=== PATIENT | female | born 1970 | race Caucasian/White ===

== ENCOUNTER → 2017-09-13 10:12 | Outpatient (CLI) | payer BC, SELFPAY ==
--- NOTE | 2017-09-13 10:16 | MM_ITS ---
MM Dig screening mamm BI w/CAD CAD Screening COMPARISON: Analog mammograms 04/16/2007 INDICATION: There is no personal or family history of breast cancer TECHNIQUE: Standard CC and MLO images were obtained. R2 CAD reviewed. FINDINGS: Scattered fiber glandular densities are seen throughout both breasts. There is an asymmetric density lower inner quadrant right breast which is stable and unchanged in size and overall appearance from the previous exam. It has smooth well-defined borders and likely is a fibroadenoma. There is no new or suspicious lesion in either breast and there are no suspicious microcalcifications. IMPRESSION: However fatty parenchyma no suspicious lesion seen recommend yearly follow-up BI-RADS Category: 2 Benign Finding(s) RECOMMENDED FOLLOW-UP: 1YR - 1 YEAR FOLLOW-UP (A letter has been sent to the patient regarding results of the study.)
== END ==
PROVIDERS: Family Provider Family Medicine; PCP Family Medicine; Visit Provider Family Medicine
DX: Z12.31 Encounter for screening mammogram for malignant neoplasm of breast (principal)
CPT/HCPCS: 77067

== ENCOUNTER 2020-06-27 17:08 | Emergency (ER) | payer BC, SELFPAY ==
[2020-06-27 17:47] VITALS: BP 144/75; PULSE 85; RESP 19; TEMP 36.9; O2SAT 99; BMI 25.0
--- NOTE | 2020-06-27 17:56 | HMH.EDUTC ---
[facility] Disposition Clinical Impression: Exposure to COVID-19 virus Disposition: Home, Self-Care Condition on Discharge: Good Instructions: Preventing the Spread of Coronavirus Discharge Instructions Additional Instructions: isolate for 10 days if any symptoms follow up call pcp if symptoms worsen return or be seen in ed Referrals: Renata Torres APRN [Primary Care Provider] - Time of Disposition: 17:59 Medical Decision Making - Castro Inquiry Pt receiving controlled substance: No Vital Signs: 06/27/20 17:47 Temperature 98.4 F Temperature Source Oral Pulse Rate [Right Brachial] 85 Respiratory Rate 19 Blood Pressure [Right Arm] 144/75 H Blood Pressure Mean [Right Arm] 98 Blood Pressure Source [Right Arm] Automatic Cuff Blood Pressure Position [Right Arm] Sitting 02 Sat by Pulse Oximetry 99 Oxygen Delivery Method Room Air Orders (Tests/Meds): ORDERS Category Date Time Status Covid-19 Nasal PCR ([facility]) Routine Lab 06/27/20 17:26 Received [facility] HPI - General Chief complaint: Urgent Treatment Center Stated complaint: covid exposure Time Seen by Provider: 06/27/20 17:56 Mode of Arrival: Ambulatory Source of Information: Patient Limitations: No Limitations Description of Symptoms (Recalled from Triage Doc. by RN): PATIENT REQUESTING COVID TEST D/T EXPOSURE; DENIES SYMPTOMS HEENT Symptoms (Recalled from RN notes): No Resp Symptoms (Recalled from RN notes): No Skin Symptoms (Recalled from RN notes): No MS Symptoms (Recalled from RN notes): No Functional Status (Recalled from RN notes): WNL - History of Present Illness Provider Complaint: 49 yr old female presents for covid test. pt states her was exposed and had symptoms and her work wants her tested. - Related Data Allergies Allergy/AdvReac Type Severity Reaction Status Date / Time No Known Allergies Allergy Verified 06/27/20 17:50 - Worker's Comp Is this a Worker's Comp case?: No [facility] History - Hepatitis A Screen Drug use history?: No High risk sexual behaviors?: No History of sexually transmitted infection?: No Currently employed?: No Childcare worker?: No Do you have indoor plumbing?: Yes Do you have electricity?: Yes Attestation statement:: This patient has been screened for Hepatitis A risk factors. I have reviewed the patient's past medical history: Yes - Social History Alcohol Intake: never Occupational Status: other ROS Obtained: Yes Systems reviewed as appropriate & no additional complaints - Constitutional Constitutional: Reports system reviewed and no additional complaints, except as docu, Denies fever(s) - Eyes Eyes: Reports system reviewed and no additional complaints, except as docu, Denies loss of peripheral vision - ENT Ears, Nose, Mouth, and Throat: Reports system reviewed and no additional complaints, except as docu, Denies sore throat - Cardiovascular Cardiovascular: Reports system reviewed and no additional complaints, except as docu, Denies chest pain at rest - Respiratory Respiratory: Yes system reviewed and no additional complaints, except as docu, No dyspnea - Gastrointestinal Gastrointestingal: Reports: system reviewed and no additional complaints, except as docu. Denies: nausea, vomiting - Genitourinary Female Genitourinary: Reports system reviewed and no additional complaints, except as docu, Denies nocturia - Musculoskeletal Musculoskeletal: Reports system reviewed and no additional complaints, except as docu, Denies decreased muscle mass - Integumentary/Breasts Skin/Breast: Reports system reviewed and no additional complaints, except as docu, Denies rash - Neurologic Neurologic: Reports system reviewed and no additional complaints, except as docu - Endocrine Endocrine: Reports system reviewed and no additional complaints, except as docu, Denies fatigue - Hematologic/Lymphatic Henatologic/Lymphatic: Reports system reviewed and no additional complaints, except as do
[2020-06-27 17:58] VITALS: BP 144/75; PULSE 85; RESP 19; TEMP 36.9; O2SAT 99
== END 2020-06-27 18:00 | disposition home or self-care (01) ==
PROVIDERS: Emergency Provider Nurse Practitioner Family; PCP Nurse Practitioner Family
DX: Z20.828 Contact with and (suspected) exposure to other viral communicable diseases (principal)
CPT/HCPCS: 99201; U0003

== ENCOUNTER 2020-08-02 13:39 | Emergency (ER) | payer BC, SELFPAY ==
[2020-08-02 14:25] VITALS: BP 123/69; PULSE 97; RESP 20; TEMP 36.8; O2SAT 99; BMI 26.6
--- NOTE | 2020-08-02 14:50 | HMH.EDUTC ---
[facility] Disposition Clinical Impression: Exposure to COVID-19 virus Disposition: Home, Self-Care Condition on Discharge: Good Instructions: Preventing the Spread of Coronavirus Discharge Instructions Additional Instructions: Drink plenty of fluids. Take tylenol for pain or fever. Return if you begin to have difficulty breathing. Follow up with your regular doctor. GO TO THE ER FOR ANY WORSENING SYMPTOMS Referrals: Amarjit Pope MD [Primary Care Provider] - Time of Disposition: 14:59 Medical Decision Making - Medical Records Medical records reviewed: No: I reviewed the patient's medical records. - Castro Inquiry Pt receiving controlled substance: No Vital Signs: 08/02/20 14:25 Temperature 98.3 F Temperature Source Oral Pulse Rate [Right Brachial] 97 H Respiratory Rate 20 Blood Pressure [Right Arm] 123/69 Blood Pressure Mean [Right Arm] 87 Blood Pressure Source [Right Arm] Automatic Cuff Blood Pressure Position [Right Arm] Sitting 02 Sat by Pulse Oximetry 99 Oxygen Delivery Method Room Air Orders (Tests/Meds): ORDERS Category Date Time Status Covid-19 Nasal PCR Sendout Adiel Routine Lab 08/02/20 13:53 Received [facility] [place] HPI - General Stated complaint: wants covid test Time Seen by Provider: 08/02/20 14:56 Mode of Arrival: Ambulatory Source of Information: Patient Limitations: No Limitations Description of Symptoms (Recalled from Triage Doc. by RN): PATIENT REQUESTING COVID TEST D/T EXPOSURE; DENIES SYMPTOMS HEENT Symptoms (Recalled from RN notes): No Resp Symptoms (Recalled from RN notes): No Skin Symptoms (Recalled from RN notes): No MS Symptoms (Recalled from RN notes): No Functional Status (Recalled from RN notes): WNL - History of Present Illness Provider Complaint: Her tested positive for covid yesteday. This patient denies any symptoms. - Related Data Allergies Allergy/AdvReac Type Severity Reaction Status Date / Time No Known Allergies Allergy Verified 06/27/20 17:50 - Worker's Comp Is this a Worker's Comp case?: No [facility] History - Hepatitis A Screen Drug use history?: No High risk sexual behaviors?: No History of sexually transmitted infection?: No Currently employed?: No Childcare worker?: No Do you have indoor plumbing?: Yes Do you have electricity?: Yes Attestation statement:: This patient has been screened for Hepatitis A risk factors. I have reviewed the patient's past medical history: Yes - Social History Alcohol Intake: never Occupational Status: other ROS Obtained: Yes All systems reviewed & no additional complaints - Constitutional Constitutional: Reports system reviewed and no additional complaints, except as docu - Eyes Eyes: Reports system reviewed and no additional complaints, except as docu - ENT Ears, Nose, Mouth, and Throat: Reports system reviewed and no additional complaints, except as docu - Cardiovascular Cardiovascular: Reports system reviewed and no additional complaints, except as docu - Respiratory Respiratory: Yes system reviewed and no additional complaints, except as docu - Gastrointestinal Gastrointestingal: Reports: system reviewed and no additional complaints, except as docu Physical Exam - General General appearance: alert, in no apparent distress - Head Head exam: atraumatic, normocephalic, normal inspection - Eye Eye exam: Present: normal appearance, PERRL, EOMI - ENT ENT exam: Present: normal exam, normal oropharynx, mucous membranes moist, TM's normal bilaterally, normal external ear exam - Neck Neck exam: Present: normal inspection, full ROM, trachea midline. Absent: meningismus, lymphadenopathy - Chest Chest inspection: Present: normal inspection, symmetric chest wall rise. Absent: tenderness - Respiratory Respiratory exam: Present: normal lung sounds bilaterally. Absent: respiratory distress - Cardiovascular Cardiovascular exam: Present: regular rate, normal rhythm
[2020-08-02 15:05] VITALS: BP 123/69; PULSE 97; RESP 20; TEMP 36.8; O2SAT 99
[2020-08-04 15:25] LABS: Covid-19 Nasal PCR Sendout Lex Positive
--- NOTE | 2020-08-04 16:20 | PC.NURSE ---
CALLED PT TO ADVISE PT THAT THEY HAVE A POSITIVE COVID TEST, PT STATED THAT SHE HAD CALLED EARLIER THIS MORNING AND WAS TOLD THAT HER TEST WAS NEGATIVE. CHECKED PTS CHART AGAIN TO VERIFY THAT SHE HAD A POSITIVE COVID TEST. CALLED LANE MARKER INSTALLER EMILIE RECIO TO LET HER KNOW THAT THE PT NEEDED TO SPEAK TO HER
== END 2020-08-02 15:10 | disposition home or self-care (01) ==
PROVIDERS: Emergency Provider Nurse Practitioner Family; PCP Family Medicine
DX: U07.1 COVID-19 (principal)
CPT/HCPCS: 99201; U0004

== ENCOUNTER → 2020-10-30 10:01 | Outpatient (CLI) | payer BC, SELFPAY ==
[2020-10-30 10:58] LABS: Basophils # 0.1 K/mm3 (0-0.2); Basophils % 0.7 % (0.1-2.0); Eosinophils # 0.2 K/mm3 (0.0-0.4); Eosinophils % 2.4 % (0.1-12.0); Hematocrit 40.8 % (37.0-47.0); Hemoglobin 13.1 g/dL (12.2-16.2); Lymphocytes # 1.5 K/mm3 (0.7-4.5); Lymphocytes % 18.6 % (10-50); Mean Corpuscular HGB Conc 32.2 g/dL (31.8-35.4); Mean Corpuscular Hemoglobin 29.1 pg (27.0-31.2); Mean Corpuscular Volume 90.5 fl (81-99); Mean Platelet Volume 7.8 fl (7.4-10.4); Monocytes # 0.3 K/mm3 (0.1-1.0); Monocytes % 3.6 % (1.7-9.3); Neutrophils # 5.9 K/mm3 (1.8-7.8); Neutrophils % 74.8 % (37.0-80.0); Platelet Count 449 K/mm3 (142-424); Red Blood Count 4.51 M/mm3 (4.20-5.40); Red Cell Distribution Width 13.5 % (11.5-17.5); White Blood Count 7.8 K/mm3 (4.8-10.8)
[2020-10-30 12:11] LABS: Alanine Aminotransferase 9 U/L (12-78); Albumin Level 3.9 g/dl (3.5-5.0); Albumin/Globulin Ratio 1.6 (1.1-1.8); Alkaline Phosphatase 84 U/L (38-126); Anion Gap 11.4 mEq/L (5-15); Aspartate Amino Transferase 16 U/L (14-36); Bilirubin,Total 0.4 mg/dl (0.2-1.3); Blood Urea Nitrogen 6 mg/dl (7-17); Calcium 9.4 mg/dl (8.4-10.2); Carbon Dioxide 22 mmol/L (22.0-30.0); Chloride 111 mmol/L (98-107); Chol/HDL Ratio 2.8 (1-3.5); Cholesterol 177 mg/dl (140-200); Estimated Glomerular Filt Rate 106 ml/min (>60); GFR (African American) 128 ML/MIN (>60); Globulin 2.5 g/dL (1.3-3.2); Glucose 100 mg/dl (74-100); HDL Cholesterol 63 mg/dl (40-60); Potassium 4.4 mmoL/L (3.5-5.1); Sodium 140 mmol/L (136-145); Total Protein,Serum 6.4 g/dl (6.3-8.2); Triglycerides 75 mg/dl (30-150); VLDL Cholesterol 15 mg/dL (0-40)
[2020-10-30 12:22] LABS: Direct LDL Cholesterol 95.84 mg/dL (100-129)
[2020-10-30 12:28] LABS: 25-OH Vitamin D, Total 20.4 ng/mL (30-100); T4 (Thyroxine) 12.6 ug/dl (5.53-11.0)
[2020-10-30 12:42] LABS: Thyroid Stimulating Hormone 1.18 uIU/mL (0.465-4.68)
== END ==
PROVIDERS: Visit Provider Nurse Practitioner Family
DX: R63.4 Abnormal weight loss (principal); R53.83 Other fatigue; E55.9 Vitamin D deficiency, unspecified
CPT/HCPCS: 36415; 80053; 80061; 82306; 84436; 84443; 85025

== ENCOUNTER 2020-11-01 06:21 | Day surgery (SDC) | payer BC, SELFPAY ==
[2020-10-29 13:58] VITALS: BMI 24.1
[2020-11-01] VITALS (9 sets, daily range): BP systolic 97–119; BP diastolic 58–75; PULSE 64–110; RESP 16–18; TEMP 36.8; O2SAT 95–97
--- NOTE | 2020-11-01 07:29 | P.PN_ITS ---
[facility] Anesthesia Checklist - Patient Identification Patient Identification: Arm Band - Structural Data Admitted From: Home Planned Operative Procedure/s: colonoscopy Consent for Planned Operative Procedure(s) Verified: Yes Verified Documents: Surgical Consent, History and Physical - NPO Status Verified Time NPO: 00:00 - Additional verifications Anesthesia Reactions: No - Airway Assessment C-Spine Mobility Assessed: Yes (mp2) TMJ Mobility Assessed: Yes Dentition: Good Dentition - Neurological Assessment Level of Consciousness: Awake, Alert - Anesthesia Plan Anesthesia Risk discussed: Yes Anesthesia Plan: Verified ASA Class: II Anesthesia Type: MAC [facility] History I have reviewed the patient's past medical history: Yes Medical History: Denies:: Cancer, Diabetes Mellitus Type 1, Diabetes Mellitus Type 2, MRSA, Seizures *Have you ever received a pneumonia vaccine?: No *Have you received a flu vaccine this season?: No Anesthesia experience/problems:: nac Other Surgeries: Yes: Hysterectomy-Total Amputation: No Fractures: No - *Social History Last grade of school completed: Advanced degree Smoking Status: Current every day smoker Tobacco Type: cigarettes # Packs/Day (cigarettes): 1 Alcohol Intake: never Substance Use Type: denies use *Occupational Status:: employed Housing: house Household Members: family *Travel in the last 8 weeks: None Family Hx:: Cancer
--- NOTE | 2020-11-01 07:33 | HMH.PROC ---
[facility] Procedure Note Procedure Note:: Sigmoidoscopy procedure Report: Sigmoidoscopy with cold biopsies Endoscopist: Silver Guthrie II, MD Referring physician: Debra BERRIOS Date of Procedure: November 01, 2020 Equipment: Olympus 180 variable stiffness pediatric colonoscope Sedation: MAC sedation Indication: Mrs. Nino is a 50-year-old female who has had a change in her bowel habits and weight loss. She does have smaller caliber and looser bowel movements. She has had some intermittent rectal bleeding which she attributes to hemorrhoids. She has lost 20 pounds since June 2020. She reports lower abdominal pain and discomfort. Patient does report incomplete defecation with longer periods of time in the commode and some hemorrhoidal prolapse. She reports no bloating or gassiness. She reports no family history of colon cancer. This is her first colonoscopy which is performed for diagnostic purposes. Procedure: Prior to the procedure, a history and physical exam was performed, and patient's medications and allergies were reviewed. The risks, benefits and alternatives of the sedation and procedure were discussed with the patient. All questions were answered and informed consent was obtained. The patient was brought to the procedure room. Patient identification and proposed procedure were verified by the physician and the nurse. The patient was placed in a left lateral decubitus position and the scope was passed under direct vision. Throughout the procedure, the patient's blood pressure, pulse, and oxygen saturations were monitored continuously. The colonoscopy was accomplished without difficulty. The patient tolerated the procedure well. Findings: On digital rectal examination there were prolapsed hemorrhoids. There was normal rectal tone. The rectal vault was normal, but digitally a circumferential fixed mass could be palpated approximately 10 cm from the anal verge. The colonoscope was then inserted through the anal canal into the rectum and advanced to this circumferential mass that was certainly partially stenotic. This was 4 to 5 cm in length and completely circumferential. There was friability and fungating mucosa. The proximal end was stenotic and the scope could not be advanced beyond this mass because of some fiber residue debris and stenosis. I did not attempt to dilate or advance beyond this stenotic region. Multiple biopsies were obtained. The distal rectum and rectal vault were normal. Upon retroflexion there were grade 2 internal hemorrhoids. Impression: 1. 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 Grade 2 internal hemorrhoids Plan: I will follow up the biopsies. I would initiate staging today with CT scan of chest, abdomen and pelvis with intravenous and p.o. contrast. I will obtain CEA level. I will discussed the case with colorectal surgery. I will also discuss everything with the patient and family.
--- NOTE | 2020-11-01 08:24 | CT_ITS ---
PROCEDURE: CT ABDOMEN PELVIS W CON CLINICAL INDICATION: colon cancer Constipation rectal pressure New findings from scope this am Injection in rt arm COMPARISON: No exams were available for comparison TECHNIQUE: IV Contrast: 75ML Isovue 370 Oral Contrast 450ml Redicat Axial images obtained with sagittal and coronal reformats. All CT scans at the facility use one or more dose reduction, viz: automated exposure control, ma/kV adjustment per patient size (including targeted exams where dose is matched to indication, i.e. head), or iterative reconstruction technique. FINDINGS: LOWER THORAX: No acute finding ABDOMEN & PELVIS: The liver, spleen, adrenal glands, kidneys and pancreas have an unremarkable appearance. Unremarkable appearing appendix. No intestinal obstruction or free air. There is a focal area of thickening involving the colon at the distal sigmoid colon and rectosigmoid junction. This region measures approximately 7 cm in length. The colonic wall thickening is somewhat eccentric toward the left lateral aspect of the colon at this area with severe narrowing at the rectosigmoid junction consistent with an apple-core lesion. This is consistent with carcinoma. There is some minimal irregularity of the serosal surface raising the suspicion of serosal spread. There are also a few small lymph nodes in the pelvic region measuring up to 11 mm in the left pelvis lateral to the rectosigmoid junction. Other smaller nodes are present centrally within the pelvis anteriorly suspicious for local fernando spread. No ascites. No no bony destructive process identified. No blastic or lytic lesions. IMPRESSION: 1. Colonic mass at the rectosigmoid junction consistent with neoplasm as described above with findings suspicious for serosal and local fernando spread. 2. No evidence of hepatic or adrenal metastasis Dictated by: Collin Severino MD 11/02/2020 10:12 Collin Severino MD in [place] 11/02/2020 10:12
[2020-11-01 08:35] LABS: Basophils % 0.3 % (0.1-2.0); Eosinophils # 0.2 K/mm3 (0.0-0.4); Eosinophils % 1.4 % (0.1-12.0); Hematocrit 37.9 % (37.0-47.0); Hemoglobin 12.5 g/dL (12.2-16.2); Lymphocytes # 1.4 K/mm3 (0.7-4.5); Lymphocytes % 12.7 % (10-50); Mean Corpuscular Hemoglobin 29.3 pg (27.0-31.2); Mean Corpuscular Volume 88.9 fl (81-99); Mean Platelet Volume 8.2 fl (7.4-10.4); Monocytes # 0.4 K/mm3 (0.1-1.0); Monocytes % 3.7 % (1.7-9.3); Neutrophils # 9.1 K/mm3 (1.8-7.8); Neutrophils % 81.8 % (37.0-80.0); Platelet Count 423 K/mm3 (142-424); Red Blood Count 4.26 M/mm3 (4.20-5.40); Red Cell Distribution Width 13.2 % (11.5-17.5); White Blood Count 11.1 K/mm3 (4.8-10.8)
[2020-11-01 08:42] LABS: Blood Urea Nitrogen 7 mg/dl (7-17); Creatinine Clearance Estimated 100 mL/min (50-200); Estimated Glomerular Filt Rate 89 ml/min (>60); GFR (African American) 107 ML/MIN (>60)
[2020-11-01 08:43] LABS: Iron 74 ug/dL (37-170)
[2020-11-01 08:52] LABS: Total Iron Binding Capacity 325 ug/dL (265-497)
[2020-11-01 09:21] LABS: Ferritin 11.7 ng/ml (6.24-137)
[2020-11-02 17:40] LABS: CEA 61.5 ng/mL (0.0-4.7)
== END 2020-11-01 09:38 | disposition home or self-care (01) ==
PROVIDERS: PCP Nurse Practitioner Family; Visit Provider Internal Medicine Gastroenterology
PROC: 0DJD8ZZ Inspection of Lower Intestinal Tract, Via Natural or Artificial Opening Endoscopic (ICD-10-PCS; CPT 45330; 2020-11-01 07:30)
DX: R19.4 Change in bowel habit (principal); R63.4 Abnormal weight loss; Z68.24 Body mass index [BMI] 24.0-24.9, adult; C18.7 Malignant neoplasm of sigmoid colon; K64.1 Second degree hemorrhoids; K56.699 Other intestinal obstruction unspecified as to partial versus complete obstruction; Z72.0 Tobacco use
CPT/HCPCS: 45331; 36415; 74177; 82378; 82565; 82728; 83540; 83550; 84520; 85025; Q9967

== ENCOUNTER → 2020-11-03 13:14 | Outpatient (CLI) | payer BC, SELFPAY ==
--- NOTE | 2020-11-03 13:24 | CT_ITS ---
PROCEDURE: CT CHEST W CON CLINCAL INDICATION: RECTOSIGMOID Colon cancer workup, evaluate for metastatic disease New findings (rectosigmoid cancer) for surgery COMPARISON: No exams were available for comparison TECHNIQUE: IV Contrast: 75ml Isovue 370 Axial images obtained with sagittal and coronal reformats. All CT scans at the facility use one or more dose reduction, viz: automated exposure control, ma/kV adjustment per patient size (including targeted exams where dose is matched to indication, i.e. head), or iterative reconstruction technique. FINDINGS: HEART AND MEDIASTINAL STRUCTURES: No mediastinal or hilar mass or adenopathy LUNGS AND PLEURAL SPACES: Lungs are clear. No suspicious pulmonary nodules. BONY STRUCTURES: No acute bony abnormalities apparent. UPPER ABDOMEN: Unremarkable. ADDITIONAL FINDINGS: No other significant abnormalities. IMPRESSION: Negative CT chest. No convincing evidence of metastatic disease Dictated by: Collin Severino MD 11/04/2020 15:33 Collin Severino MD in [place] 11/04/2020 15:33
== END ==
PROVIDERS: PCP Nurse Practitioner Family; Visit Provider Surgery
DX: C18.9 Malignant neoplasm of colon, unspecified
CPT/HCPCS: 71260; Q9967

== ENCOUNTER → 2021-05-13 09:50 | Outpatient (CLI) | payer BC, SELFPAY | PROVIDERS: Visit Provider Surgery | DX: Z01.818 Encounter for other preprocedural examination (principal); Z11.52 Encounter for screening for COVID-19; Z12.11 Encounter for screening for malignant neoplasm of colon; C19 Malignant neoplasm of rectosigmoid junction | CPT/HCPCS: U0003 ==

== ENCOUNTER → 2021-06-17 10:28 | Outpatient (CLI) | payer BC, SELFPAY | PROVIDERS: Visit Provider Nurse Practitioner Family | DX: Z01.812 Encounter for preprocedural laboratory examination (principal); Z20.822 Contact with and (suspected) exposure to COVID-19 | CPT/HCPCS: C9803; U0003; U0005 ==

== ENCOUNTER → 2021-12-07 11:01 | Outpatient (CLI) | payer BC, SELFPAY | PROVIDERS: PCP Nurse Practitioner Family; Visit Provider Surgery | DX: Z01.812 Encounter for preprocedural laboratory examination (principal); Z11.52 Encounter for screening for COVID-19; C19 Malignant neoplasm of rectosigmoid junction | CPT/HCPCS: C9803; U0003; U0005 ==

== ENCOUNTER → 2021-12-16 10:02 | Outpatient (CLI) | payer BC, SELFPAY | PROVIDERS: PCP Nurse Practitioner Family; Visit Provider Surgery | DX: Z01.812 Encounter for preprocedural laboratory examination (principal); Z11.52 Encounter for screening for COVID-19; C19 Malignant neoplasm of rectosigmoid junction | CPT/HCPCS: C9803; U0003; U0005 ==

== ENCOUNTER 2024-09-05 16:04 | Outpatient (CLI) | payer BC, SELFPAY ==
--- NOTE | 2024-09-05 16:15 | MM_ITS ---
PROCEDURE INFORMATION: Exam: MG Bilateral Screening 3D Mammography Exam date and time: 09/05/2024 4:15 PM Age: 54 years old Clinical indication: Screening. No family history of breast cancer. TECHNIQUE: Imaging protocol: Bilateral Screening tomosynthesis and 2D mammography including computer-aided detection (CAD) when performed. COMPARISON: 1. MG [facility] MM Dig screening mamm BI w/CAD 09/13/2017 10:27 AM 2. MG MM [facility] Mammo Personnel Analyst 04/16/2007 10:57 AM FINDINGS: MAMMOGRAPHY: Breast composition: There are scattered areas of fibroglandular density. Mass: No suspicious mass. Architectural distortion: None. Calcifications: No suspicious calcifications. Asymmetric density: None. Skin thickening: None. Axillary adenopathy: None. IMPRESSION: No mammographic evidence of malignancy. Annual screening is recommended unless otherwise clinically indicated. ASSESSMENT: BI-RADS Category 1: Negative.
== END 2024-09-05 23:59 | disposition home or self-care (01) ==
LOC: RAD 16:06
PROVIDERS: PCP Nurse Practitioner Family; Visit Provider Nurse Practitioner Family
DX: Z12.31 Encounter for screening mammogram for malignant neoplasm of breast (principal)
CPT/HCPCS: 77063; 77067

== ENCOUNTER 2025-05-28 06:25 | Day surgery (SDC) | payer BC, SELFPAY ==
[2025-05-26 13:21] VITALS: BMI 29.1
--- NOTE | 2025-05-27 07:17 | EXP.HP ---
History of Present Illness *Admission Date: 05/28/25 *History of present illness: Mrs. Nino is a 54-year-old female who is here for screening colonoscopy. The patient does have a personal history of colorectal cancer. She was found to have rectal/rectosigmoid cancer in November 2020 on sigmoidoscopy with me and this was stenotic. The patient was referred to Bowen Perez MD and had stage III (T4a N2b MX) colon cancer and received neoadjuvant chemoradiation. The examination is deemed medically necessary for screening colonoscopy. The patient has been seen, interviewed and examined prior to the procedure by both myself and the anesthesia provider. [facility] Disclaimer: The information contained in this section may have been updated after the patient was seen, as this information can be updated by other users. Medical History Colon cancer Acid reflux Surgical History History of partial hysterectomy History of reversal of ileostomy Hx of ileostomy History of partial colectomy Family History Father Esophageal cancer Social History Smoking Status: Former smoker tobacco type: cigarettes packs per day: 1 alcohol intake: never substance use type: denies use current occupational status: employed Travel in the last 8 weeks?: None household members: spouse housing: house current occupation: teacher caffeine: Yes Have you lived/traveled outside [place] in past 30 days?: No Contact w/someone who lives/traveled outside US past 30 days?: No Exposure to someone with infectious disease in past 14 days?: No Do you have a fever (greater than 100.4 F or 38 C)?: No Have you tested positive for COVID-19?: No Exposed to someone with COVID-19 in past 14 days?: No Do you have a sore throat?: No Do you have a cough?: No Do you have any weakness?: No Are you experiencing any nausea/vomitting?: No Do you have any diarrhea?: No Are you experiencing any unusual bleeding?: No Do you have any muscle aches/pain?: No Do you have any abdominal pain?: No Are you experiencing loss of taste or smell?: No Other Medical History Have you received the Flu Vaccine for this season: No Have you received the Pneumonia Vaccine: No Review of Systems Review of Systems Review of systems (narrative): Negative *Cardiovascular Comments: Negative *Gastrointestinal Comments: Negative *Genitourinary Comments: Negative *Musculoskeletal Comments: Negative *Neurologic Comments: Negative Meds Home Medications and Allergies Home Medications ?Medication ?Instructions ?Recorded ?Confirmed ?Type sodium,potassium,mag sulfates 17.5 See Rx Instructions PO .COMPLEX 05/14/25 05/28/25 Rx gram-3.13 gram-1.6 gram oral soln #354 mL (Suprep Bowel Prep Kit) New Prescriptions to Start Prescriptions: Allergies Allergy/AdvReac Type Severity Reaction Status Date / Time No Known Allergies Allergy Verified 10/17/24 13:33 Exam Data for Last 24 hours I & O for Last 24 hours: Intake & Output 05/24/25 05/25/25 05/26/25 05/27/25 23:59 23:59 23:59 23:59 Weight 175 lb *Routine HEENT Exam Head: Present normocephalic Eye: Present EOMI and PERRL ENT: Present mucous membranes moist *Routine Neck Exam Neck: Present supple *Routine Respiratory Exam Respiratory: Present CTA bilaterally *Routine Cardiovascular Exam Cardiovascular: Present RRR *Routine Abdominal Exam Abdominal: Present soft and normoactive bowel sounds; Absent tenderness *Routine Rectal Exam Rectal:: deferred *Routine Genitalia Exam Genitalia:: deferred *Routine Extremities Exam Extremities: Absent cyanosis, clubbing or edema *Routine Skin Exam Skin: Present warm; Absent rash *Routine Neurological Exam Neurological: Present alert and oriented X3 Assessment and Plan *Assessment and plan (1) Personal history of colon cancer, stage III: Status: Acute Category: Medical Code(s): Z85.038 - Personal history of other malignant neoplasm of large intestine (2) Screening for colon cancer: Status: Acute Category: Medical Code(s): Z12.11 - Encounter for screening for malignant neoplasm of colon (3) Cancer of rectosigmoid (colon): Status: Acute Category: Medical Code(s): C19 - Malignant neoplasm of rectosigmoid junction Plan A/P: 1. Personal history of stage III rectosigmoid colon cancer is the preprocedural diagnosis. The patient will be anesthetized/sedated using MAC sedation. The patient has been seen and examined. Cardiac and lung assessment prior to the examination is stable. Proceed with planned screening colonoscopy.
[2025-05-28 06:57] VITALS: BP 118/74; PULSE 73; RESP 16; TEMP 36.6; O2SAT 99; BMI 29.1
--- NOTE | 2025-05-28 07:01 | HMH.PROCNOTE ---
[facility] Procedure Note Date: 05/28/25 Time: 08:09 Procedure Note:: Colonoscopy Procedure Report: Colonoscopy Endoscopist: Silver Guthrie II, MD Referring physician: YASH Estevez/Bowen Perez MD Date of Procedure: May 28, 2025 Equipment: Olympus [id number] adult colonoscope Sedation: MAC sedation Indication: Mrs. Nino is a 54-year-old female who is here for screening colonoscopy. The patient does have a personal history of colorectal cancer. She was found to have rectosigmoid cancer in November 2020 on sigmoidoscopy with me and there was malignant stenosis. I did send the patient to colorectal surgery/Bowen Perez MD and the patient also saw oncology at the [facility]. She did receive neoadjuvant chemoradiation and subsequently had surgical resection. 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 She did receive additional chemotherapy after surgery. The patient has remained in remission. She did have 1 subsequent colonoscopy in May 2021. She reports no abdominal pain, weight loss, change in her bowel habits or rectal bleeding. Procedure: Prior to the procedure, a history and physical exam was performed, and patient's medications and allergies were reviewed. The risks, benefits and alternatives of the sedation and procedure were discussed with the patient. All questions were answered and informed consent was obtained. The patient was brought to the procedure room. Patient identification and proposed procedure were verified by the physician and the nurse. The patient was placed in a left lateral decubitus position and the scope was passed under direct vision. Throughout the procedure, the patient's blood pressure, pulse, and oxygen saturations were monitored continuously. The colonoscopy was accomplished without difficulty. The patient tolerated the procedure well. Findings: On digital rectal examination there was normal rectal tone. There were no external hemorrhoids. The colonoscope was introduced through the anal canal to the rectum and advanced to the cecum. The ileocecal valve and appendiceal orifice were identified. The scope was advanced a short distance into the ileum which appeared grossly normal. The scope was then withdrawn into the colon. The cecum, ascending, transverse, descending and remaining sigmoid colon were grossly normal. The anastomotic site was within 2 cm of the anal verge. There were no mucosal abnormalities identified. Upon retroflexion there were small grade 1 internal hemorrhoids. The preparation was excellent throughout with Addison Preparation Score of 9. Impression: 1. Normal colonoscopy with intubation of the terminal ileum (with normal colorectal anastomosis (anastomotic cuff 2 cm from anal verge)) Plan: I would recommend repeat screening/surveillance colonoscopy again in 5 years.
[2025-05-28] MEDS: LACTATED RINGERS 1000ML 1,000 ML 50 ML IV (07:05)
--- NOTE | 2025-05-28 07:31 | P.PNANES_ITS ---
[facility] Disclaimer: The information contained in this section may have been updated after the patient was seen, as this information can be updated by other users. Medical History Colon cancer Acid reflux Surgical History History of partial hysterectomy History of reversal of ileostomy Hx of ileostomy History of partial colectomy Family History Father Esophageal cancer Social History Smoking Status: Former smoker tobacco type: cigarettes packs per day: 1 alcohol intake: never substance use type: denies use current occupational status: employed Travel in the last 8 weeks?: None household members: spouse housing: house current occupation: teacher caffeine: Yes Have you lived/traveled outside [place] in past 30 days?: No Contact w/someone who lives/traveled outside [place] past 30 days?: No Exposure to someone with infectious disease in past 14 days?: No Do you have a fever (greater than 100.4 F or 38 C)?: No Have you tested positive for COVID-19?: No Exposed to someone with COVID-19 in past 14 days?: No Do you have a sore throat?: No Do you have a cough?: No Do you have any weakness?: No Are you experiencing any nausea/vomitting?: No Do you have any diarrhea?: No Are you experiencing any unusual bleeding?: No Do you have any muscle aches/pain?: No Do you have any abdominal pain?: No Are you experiencing loss of taste or smell?: No [facility] Anesthesia Checklist Patient Identification Patient Identification: Arm Band Structural Data Admitted From: Home Planned Operative Procedure/s: Colonoscopy Consent for Planned Operative Procedure(s) Verified: Yes Verified Documents: Surgical Consent and History and Physical NPO Status Verified Time NPO: 04:30 (finished prep) Additional verifications Anesthesia Reactions: No Airway Assessment Mallampati Score:: Class II C-Spine Mobility Assessed: Yes TMJ Mobility Assessed: Yes Dentition: Good Dentition Neurological Assessment Level of Consciousness: Awake, Alert and Appropriate Anesthesia Plan Anesthesia Risk discussed: Yes Anesthesia Plan: Verified ASA Class: I Anesthesia Type: MAC
[2025-05-28 08:10] VITALS: BP 113/72; PULSE 55; RESP 16; TEMP 36.3; O2SAT 96
[2025-05-28 08:20] VITALS: BP 118/72; PULSE 56; RESP 16; O2SAT 99
[2025-05-28 08:30] VITALS: BP 131/68; PULSE 56; RESP 16; O2SAT 99
[2025-05-28 08:40] VITALS: BP 108/61; PULSE 60; RESP 16; O2SAT 98
[2025-05-28 08:50] VITALS: BP 121/81; PULSE 57; RESP 16; O2SAT 97
== END 2025-05-28 08:50 | disposition home or self-care (01) ==
PROVIDERS: PCP Nurse Practitioner Family; Visit Provider Internal Medicine Gastroenterology
PROC: 0DJD8ZZ Inspection of Lower Intestinal Tract, Via Natural or Artificial Opening Endoscopic (ICD-10-PCS; CPT 45378; principal; 2025-05-28 08:00)
DX: Z12.11 Encounter for screening for malignant neoplasm of colon (principal); Z85.038 Personal history of other malignant neoplasm of large intestine; Z92.21 Personal history of antineoplastic chemotherapy; K21.9 Gastro-esophageal reflux disease without esophagitis; Z87.891 Personal history of nicotine dependence
CPT/HCPCS: 45378; J2003; J2704; J7120